=== PATIENT | female | born 1945 | race African-American/Black ===

== ENCOUNTER 2024-01-09 21:51 | Emergency (ER) | payer SELFPAY ==
[2024-01-09 21:57] VITALS: BMI 21.4
[2024-01-09 22:40] LABS: BASO % 0.6 % (0-2.0); EOS % 5.8 % (0-4.5); HEMATOCRIT 36.3 % (32.4-45.2); HEMOGLOBIN 11.6 GM/dL (10.7-15.3); LYMPH % 41.1 % (8-40); MCH 24.3 pg (25.7-33.7); MEAN PLT VOLUME 7.5 fl (7.5-11.1); MONO % 9.3 % (3.8-10.2); NEUT % 43.2 % (42.8-82.8); PLATELET COUNT 215 10^3/uL (134-434); RBC 4.77 M/mm3 (3.60-5.2); RDW 14.6 % (11.6-15.6); WHITE BLOOD COUNT 5.9 K/mm3 (4.0-10.0)
[2024-01-09 22:56] LABS: POTASSIUM 3.7 mmol/L (3.5-5.1)
[2024-01-09 22:59] LABS: ALBUMIN 3.2 g/dl (3.4-5.0); BLOOD UREA NITROGEN 12.4 mg/dL (7-18); CALCIUM 8.1 mg/dL (8.5-10.1)
[2024-01-09 23:02] LABS: CREATININE 1.2 mg/dL (0.55-1.3)
[2024-01-09 23:04] LABS: BILIRUBIN,TOTAL 0.3 mg/dL (0.2-1); TOT PROT 7.8 g/dl (6.4-8.2)
[2024-01-10 01:14] VITALS: BP 145/76; PULSE 78; RESP 18; TEMP 98
== END 2024-01-10 01:14 | disposition home or self-care (01) ==
LOC: JER 21:51
DX: R42 Dizziness and giddiness (principal); R05.9 Cough, unspecified; B34.9 Viral infection, unspecified; Z20.822 Contact with and (suspected) exposure to COVID-19
CPT/HCPCS: 0241U-QW; 36415; 71046-TC-FY; 80053; 85025; 93005; 93010; 99285-25